=== PATIENT | male | born 1985 | race Caucasian/White ===

== ENCOUNTER 2019-04-21 12:28 | Emergency (ER) | payer OTHER ==
[~2019-04-21] VITALS: Ht 188 cm; Wt 86.2 kg
[2019-04-21] MEDS ORDERED: ESCI10TA PO (12:45)
--- NOTE | 2019-04-21 12:49 | NUR ---
KRISS MORGAN AT BEDSIDE FOR MSE.
[2019-04-21 13:11] LABS: BASOPHILS # (AUTO) 0.1 K/uL (0.0-8.0); EOSINOPHILS # (AUTO) 0.2 K/uL (0.0-0.7); EOSINOPHILS % (AUTO) 3.4 % (0.0-7.0); HEMATOCRIT 44.3 % (36.7-47.1); HEMOGLOBIN 15.2 g/dL (12.5-16.3); LYMPHOCYTES # (AUTO) 1.8 K/uL (20.0-40.0); MEAN CORPUSCULAR HEMOGLOBIN 30.6 uug (23.8-33.4); MEAN CORPUSCULAR HGB CONC 34 g/dL (32.5-36.3); MEAN CORPUSCULAR VOLUME 89.3 fL (73.0-96.2); MONOCYTES # (AUTO) 0.4 K/uL (2.0-10.0); MONOCYTES % (AUTO) 6.2 % (0.0-11.0); NEUTROPHILS # (AUTO) 3.8 K/uL (1.8-8.9); NEUTROPHILS % (AUTO) 60.4 % (38.5-71.5); PLATELET COUNT (AUTO) 218 K/uL (152-348); RED BLOOD CELL COUNT(AUTO) 4.96 MIL/uL (4.06-5.63); WHITE BLOOD COUNT (AUTO) 6.3 K/uL (3.6-10.2)
[2019-04-21 13:18] LABS: POTASSIUM 4.4 mmol/L (3.5-5.1)
[2019-04-21 13:23] LABS: BILIRUBIN,DIRECT 0.2 mg/dL (0.0-0.2); TOTAL PROTEIN, SERUM 7.6 g/dL (6.4-8.2)
[2019-04-21 14:25] LABS: *BILIRUBIN,URIN NEGATIVE (NEGATIVE); *BLOOD, URINE NEGATIVE (NEGATIVE); *CLARITY,URINE CLEAR (CLEAR); *COLOR,URINE YELLOW (YELLOW); *KETONES,URINE NEGATIVE (NEGATIVE); *UROBILINOGEN,URINE 0.2 E.U./dl (NORMAL); LEUKOCYTE ESTERASE ,URINE NEGATIVE (NEGATIVE); NITRITE, URINE NEGATIVE (NEGATIVE); PH,URINE 5.5 (5.0-8.0); UGLUCOSE NEGATIVE (NEGATIVE)
--- NOTE | 2019-04-21 15:52 | NUR ---
Patient discharged to home in stable conditon. Written and verbal after care instructions given. Patient verbalizes understanding of instructions.
== END 2019-04-21 15:54 | disposition home or self-care (01) ==
LOC: ER 12:28
DX: S92.351A Displaced fracture of fifth metatarsal bone, right foot, initial encounter for closed fracture (principal); M79.10 Myalgia, unspecified site; R10.9 Unspecified abdominal pain; Z79.899 Other long term (current) drug therapy; X58.XXXA Exposure to other specified factors, initial encounter; Y93.89 Activity, other specified; Y92.89 Other specified places as the place of occurrence of the external cause; Y99.8 Other external cause status
CPT/HCPCS: 36415; 73630; 83735; 84443; 85025; A4663

== ENCOUNTER 2019-08-28 22:20 | Emergency (ER) | payer OTHER ==
[~2019-08-28] VITALS: Ht 190.5 cm; Wt 97.5 kg
[~2019-08-28 22:20] MED LIST: ESCI10TA PO
[2019-08-28] MEDS ORDERED: GABA600T12 PO (22:34)
--- NOTE | 2019-08-28 22:43 | NUR ---
DR. MANCIA AT BEDSIDE FOR MSE.
[2019-08-28] MEDS ORDERED: IBUPROFEN 600 MG TABLET ONE (22:51)
[2019-08-28] MEDS ORDERED: IBUPROFEN 800 MG TABLET ONE (22:52)
[2019-08-28] MEDS ORDERED: IBUPROFEN 800 MG TABLET PO ONE (23:00)
[2019-08-28 23:51] VITALS: BP 132/76
== END 2019-08-28 23:51 | disposition home or self-care (01) ==
LOC: ER 22:22
DX: S93.601A Unspecified sprain of right foot, initial encounter (principal); F41.9 Anxiety disorder, unspecified; F32.9 Major depressive disorder, single episode, unspecified; F17.200 Nicotine dependence, unspecified, uncomplicated; Z79.899 Other long term (current) drug therapy; W51.XXXA Accidental striking against or bumped into by another person, initial encounter; Y93.71 Activity, boxing; Y92.89 Other specified places as the place of occurrence of the external cause; Y99.8 Other external cause status
CPT/HCPCS: 73630; A4663

== ENCOUNTER 2019-12-15 18:02 | Emergency (ER) | payer OTHER ==
[~2019-12-15] VITALS: Ht 190.5 cm; Wt 99.8 kg
[2019-12-15 18:28] LABS: BASOPHILS # (AUTO) 0.1 K/uL (0.0-8.0); BASOPHILS % (AUTO) 0.5 % (0.0-2.0); EOSINOPHILS # (AUTO) 0.1 K/uL (0.0-0.7); EOSINOPHILS % (AUTO) 1.3 % (0.0-7.0); HEMATOCRIT 50.1 % (36.7-47.1); HEMOGLOBIN 17.1 g/dL (12.5-16.3); LYMPHOCYTES # (AUTO) 2.4 K/uL (20.0-40.0); LYMPHOCYTES % (AUTO) 23.7 % (20.5-51.5); MEAN CORPUSCULAR HEMOGLOBIN 30.6 uug (23.8-33.4); MEAN CORPUSCULAR HGB CONC 34 g/dL (32.5-36.3); MEAN CORPUSCULAR VOLUME 89.5 fL (73.0-96.2); MONOCYTES # (AUTO) 0.7 K/uL (2.0-10.0); MONOCYTES % (AUTO) 6.7 % (0.0-11.0); NEUTROPHILS # (AUTO) 6.8 K/uL (1.8-8.9); NEUTROPHILS % (AUTO) 67.8 % (38.5-71.5); PLATELET COUNT (AUTO) 243 K/uL (152-348); RED BLOOD CELL COUNT(AUTO) 5.59 MIL/uL (4.06-5.63)
[2019-12-15] MEDS ORDERED: LORAZEPAM 0.5 MG TABLET PO ONE (18:30)
[2019-12-15] MEDS ORDERED: NAPROXEN 500 MG TABLET PO ONE (18:30)
--- NOTE | 2019-12-15 18:30 | NUR ---
Patient ambulated with stable gait. Speech is clear, speaks in complete sentences. A/Ox4. Patient came for left sided non-radiating chest pain that occured last night prior to falling asleep. Patient appears anxious due to the ongoing pain. Respiratory even and unlabored no cough no sob. Denies any n/v/d. Patient in bed at lowest position, sr upx2, call light within reach. Fall precautions implemented per protocol.
[2019-12-15] MEDS ORDERED: LORAZEPAM 0.5 MG TABLET ONE (18:36)
[2019-12-15] MEDS ORDERED: NAPROXEN 500 MG TABLET ONE (18:36)
[2019-12-15 18:41] LABS: BILIRUBIN,TOTAL 0.9 mg/dL (0.2-1.0); CREATININE 1.2 mg/dL (0.6-1.3); POTASSIUM 4.2 mmol/L (3.5-5.1); TOTAL PROTEIN, SERUM 7.9 g/dL (6.4-8.2)
--- NOTE | 2019-12-15 19:17 | NUR ---
Report given to IDALMIS Araujo
--- NOTE | 2019-12-15 19:26 | NUR ---
Assumed care for patient at this time. Received full report from outgoing RN. Patient is AO x 4. Denies chest pain at this time. Will continue to monitor.
--- NOTE | 2019-12-15 20:53 | NUR ---
Patient remains stable at this time. Denies chest pain or shortness of breath. Monitored on tele, 66 NSR. Concerned about his Magnesium levels, MD notified with new orders. Pt appears extremely worried about his health, provided active listening, reassurance and redirection of worries. Reinforced MDs explanation of health to patient. Will continue to monitor.
--- NOTE | 2019-12-15 21:46 | NUR ---
All test results came back, Dr. Mai explained to patient that everything is normal. Patient cleaered for discharged to home. Written and verbal after care instructions given. Patient verbalizes understanding of instructions. Stressed follow up or return to ER for worsening s/s. VS taken and recorded.
--- NOTE | 2019-12-15 22:00 | NUR ---
DC'ed IV site on R hand. No bleeding noted. Latest VS taken. Reinforced all teaching, verbalized understanding. Patient ambulated out of ER in stable condition, steady gait.
[2019-12-15 22:01] VITALS: BP 142/76
== END 2019-12-15 22:00 | disposition home or self-care (01) ==
LOC: ER 18:05
DX: R07.89 Other chest pain (principal); F41.9 Anxiety disorder, unspecified; F12.10 Cannabis abuse, uncomplicated; F32.9 Major depressive disorder, single episode, unspecified; R25.3 Fasciculation; G89.29 Other chronic pain; M79.671 Pain in right foot
CPT/HCPCS: 36415; 70030-TC; 71045; 73630; 83735; 85025; 93005; A4663